=== PATIENT | male | born 1990 | race Caucasian/White ===

== ENCOUNTER 2023-07-20 02:19 | Emergency (ER) | payer OTHER, SELFPAY ==
--- NOTE | ~2023-07-20 | CT_ITS ---
EXAMINATION: CT diagnostic chest wo con DATE: 07/20/2023 05:35 INDICATION: Cough, expectorated unknown foreign body. TECHNIQUE: Computed tomography (CT) of the chest was performed without intravenous contrast. The dose -length product (DLP) was 160.50 mGy-cm. Automated exposure control and iterative reconstruction tech nique were employed. COMPARISON: None FINDINGS: The lungs are free of acute opacities. No pleural effusion or pneumothorax. No pathological ly enlarged thoracic lymph nodes are identified. The heart size is normal. The visualized osseous str uctures are unremarkable. IMPRESSION: 1. No CT correlate for the patient's symptoms. Reviewed, dictated and finalized at location F.
[2023-07-20 02:38] VITALS: BP 138/92; PULSE 95; RESP 19; TEMP 37.1; O2SAT 100
--- NOTE | 2023-07-20 06:28 | ED.GENADULT ---
HPI - General Adult General Chief complaint: Dental/Oral Stated complaint: thrush Time Seen by Provider: 07/20/23 04:32 History of Present Illness HPI narrative: This is a 33-year-old male, with no known significant past medical history, presenting to the emergency department complaining of thrush and coughing up abnormal objects. The patient states has been going on for the past 2 weeks. He states he was previously seen at [facility] and was told that he was suffering delusions. He describes the objects as stuck like for clear plastic masses. This is accompanied by abnormal rash on the tongue with sore throat. Related Data Allergies Allergy/AdvReac Type Severity Reaction Status Date / Time erythromycin base Allergy Unknown Verified 07/20/23 02:20 [From Pediazole] sulfisoxazole Allergy Unknown Verified 07/20/23 02:20 [From Pediazole] Review of Systems Review of Systems: CONSTITUTIONAL: Denies fever, chills, or sweats. ENT: Sore throat denies rhinorrhea, congestion, or otalgia. CARDIOVASCULAR: Denies chest pain, palpitations, or edema. RESPIRATORY: Cough productive of foreign objects denies dyspnea. GASTROINTESTINAL: Denies abdominal pain, nausea, vomiting, or diarrhea. GENITOURINARY: Denies dysuria or hematuria. SKIN: Denies rash or itching. MUSCULOSKELETAL: Denies back pain, joint pain, or myalgia. NEUROLOGIC: Denies headache, numbness, dizziness, or weakness. PSYCHIATRIC: Denies anxiety or depression. PMFSH Past Medical History Medical History (Updated 07/21/23 @ 00:00 by [facility]) No significant past medical history Surgical History Surgical History (Updated 07/20/23 @ 08:18 by Mahin North MD) No significant past surgical history Social History Social History (Updated 07/20/23 @ 08:19 by Mahin North MD) Smoking status: Current every day smoker Alcohol intake: current Substance use: current Substance use type: marijuana Exam Narrative: GENERAL: Well-developed, well-nourished, and in no acute distress. HEAD: Normocephalic, atraumatic. EYES: PERRLA and EOMI. ENT: Nares clear, no rhinorrhea or epistaxis. Mucous membranes moist. White mass noted on tongue consistent with oral candidiasis. Oropharynx without tonsillar hypertrophy exudate, however erythematous lesions are noted on the soft palate, consistent with candidiasis. Bilateral TMs pearly otero nonbulging NECK: Supple. No adenopathy or masses. CHEST: Clear to auscultation. No respiratory distress. No wheezes rales or rhonchi HEART: Regular rate and rhythm. No murmur heard. Normal peripheral pulses. ABDOMEN: Soft, nontender, nondistended, normal active bowel sounds. EXTREMITIES: Normal range of motion. No edema. SKIN: Warm, dry, no rash. NEURO: Alert and oriented x3. Moving all 4 limbs purposefully. PSYCH: Normal mood and affect. Course Course Emergency Course: 08:00 - CT of the chest not concerning for retained foreign object, mass or infection. The patient screened negative for HIV. I suspect the patient's complaints may be delusional in nature. He brings with him multiple vials containing foreign objects that appear consistent with sticks and the plastic pellets contained with in air freshening packets. Will discharge with oral antifungals and recommendation for primary care follow-up. Discussed return and emergency precautions including signs/symptoms of respiratory distress and ACS. The patient voiced understanding and is comfortable with the plan. All questions answered to his satisfaction. Vital Signs Vital signs: Vital Signs Temperature 98.7 F 07/20/23 02:38 Pulse Rate 95 07/20/23 02:38 Respiratory Rate 19 07/20/23 02:38 Blood Pressure 138/92 H 07/20/23 02:38 Pulse Oximetry 100 07/20/23 02:38 Oxygen Delivery Room Air 07/20/23 02:38 Temperature 98.7 F 07/20/23 02:38 Pulse Rate 76 07/20/23 08:49 Respiratory Rate 18 07/20/23 08:49 Blood Pressure 110/
[2023-07-20 06:30] VITALS: BP 114/93; PULSE 62; RESP 20; O2SAT 100
[2023-07-20 06:39] LABS: HIV 1/2 Ab P24 Ag Result Negative (Negative)
[2023-07-20 08:49] VITALS: BP 110/82; PULSE 76; RESP 18; O2SAT 100
== END 2023-07-20 08:51 | disposition home or self-care (01) ==
PROVIDERS: Emergency Provider Preventive Medicine Aerospace Medicine; PCP Internal Medicine Infectious Disease
DX: B37.0 Candidal stomatitis (principal); F17.200 Nicotine dependence, unspecified, uncomplicated
CPT/HCPCS: 36415; 71250; 86703; 99284; G0432